=== PATIENT | male | born 2000 | race American Indian/Alaskan Native ===

== ENCOUNTER 2021-09-23 06:58 | Emergency (ER) | payer SELFPAY ==
--- NOTE | 2021-09-23 07:47 | Emergency Department Report ---
ED ENT HPI - General Chief complaint: Dental/Oral Stated complaint: DENTAL PAIN Time Seen by Provider: 09/23/21 07:13 Source: patient Mode of arrival: Ambulatory Limitations: No Limitations - History of Present Illness Initial comments: This is a 21-year-old male nontoxic, well nourished in appearance, no acute signs of distress presents to the ED with c/o of left upper toothache several days. Patient denies following up with a dentist. Patient describes toothache as aching level of 8 out of 10. Patient denies any facial swelling. Patient denies any numbness, tingling, fever, chills, headache, stiff neck, abdominal pain, chest pain, shortness of breath. Patient stated allergies to sulfa. Patient denies any significant past medical history. MD complaint: tooth pain -: days(s) Location: tooth # 1 - pain here Severity: mild Severity scale (0 -10): 8 Quality: aching Consistency: constant Improves with: none Worsens with: none Context- Dental: history of dental caries, poor dental care Associated Symptoms: gum swelling, toothache. denies: fever, cough, pain with swallowing, sore throat, tinnitus, hearing loss, discharge from ear, rhinorrhea - Related Data Previous Rx's Medication Instructions Recorded Last Taken Type Amoxicillin [Amoxicillin TAB] 875 mg PO BID #20 tablet 09/23/21 Unknown Rx Chlorhexidine Mouthwash [Peridex] 15 ml MM BID #1 bottle 09/23/21 Unknown Rx Naproxen 500 mg PO Q12H PRN #12 tablet 09/23/21 Unknown Rx Allergies Allergy/AdvReac Type Severity Reaction Status Date / Time iodine Allergy Unknown Verified 09/23/21 07:06 Sulfa (Sulfonamide Allergy Unknown Verified 09/23/21 07:06 Antibiotics) ED Dental HPI - General Chief complaint: Dental/Oral Stated complaint: DENTAL PAIN Time Seen by Provider: 09/23/21 07:13 Source: patient Mode of arrival: Ambulatory Limitations: No Limitations - Related Data Previous Rx's Medication Instructions Recorded Last Taken Type Amoxicillin [Amoxicillin TAB] 875 mg PO BID #20 tablet 09/23/21 Unknown Rx Chlorhexidine Mouthwash [Peridex] 15 ml MM BID #1 bottle 09/23/21 Unknown Rx Naproxen 500 mg PO Q12H PRN #12 tablet 09/23/21 Unknown Rx Allergies Allergy/AdvReac Type Severity Reaction Status Date / Time iodine Allergy Unknown Verified 09/23/21 07:06 Sulfa (Sulfonamide Allergy Unknown Verified 09/23/21 07:06 Antibiotics) ED Review of Systems ROS: Stated complaint: DENTAL PAIN Other details as noted in HPI Comment: All other systems reviewed and negative Constitutional: denies: chills, fever Eyes: denies: eye pain, eye discharge, vision change ENT: dental pain. denies: ear pain, throat pain, hearing loss, epistaxis, congestion Respiratory: denies: cough, shortness of breath, wheezing Cardiovascular: denies: chest pain, palpitations Endocrine: no symptoms reported Gastrointestinal: denies: abdominal pain, nausea, diarrhea Genitourinary: denies: urgency, dysuria Musculoskeletal: denies: back pain, joint swelling, arthralgia Skin: denies: rash, lesions Neurological: denies: headache, weakness, paresthesias Psychiatric: denies: anxiety, depression Hematological/Lymphatic: denies: easy bleeding, easy bruising ED Past Medical Hx - Past Medical History Previous Medical History?: No - Surgical History Past Surgical History?: No - Medications Home Medications: Home Medications Medication Instructions Recorded Confirmed Last Taken Type Amoxicillin [Amoxicillin TAB] 875 mg PO BID #20 tablet 09/23/21 Unknown Rx Chlorhexidine Mouthwash [Peridex] 15 ml MM BID #1 bottle 09/23/21 Unknown Rx Naproxen 500 mg PO Q12H PRN #12 tablet 09/23/21 Unknown Rx ED Physical Exam - General Limitations: No Limitations General appearance: alert, in no apparent distress - Head Head exam: Present: atraumatic, normocephalic - Eye Eye exam: Present: normal appearance - Expanded ENT Exam Expanded Ear exam: Present: normal external inspection Mouth exam: Present: normal external inspection, tongue normal. Absent: drooling, trismus, muffled voice Teeth exam: Present: dental caries, dental tenderness #, gingival enlargement, other (no dental abscess) Throat exam: Positive: normal inspection, other (uvula midline). Negative: tonsillar erythema, tonsillomegaly, tonsillar exudate, R peritonsillar mass, L peritonsillar mass - Neck Neck exam: Present: normal inspection, full ROM. Absent: lymphadenopathy - Respiratory Respiratory exam: Absent: respiratory distress - Cardiovascular Cardiovascular Exam: Present: regular rate - Extremities Exam Extremities exam: Present: full ROM - Back Exam Back exam: Present: full ROM - Neurological Exam Neurological exam: Present: alert, oriented X3, normal gait - Psychiatric Psychiatric exam: Present: normal affect, normal mood - Skin Skin exam: Present: warm, dry, intact, normal color. Absent: rash ED Course Vital Signs 09/23/21 07:04 Temperature 98.7 F Pulse Rate 86 Respiratory 18 Rate Blood Pressure 131/85 O2 Sat by Pulse 99 Oximetry - Reevaluation(s) Reevaluation #1: 09/23/21 07:47 Patient is speaking in full sentences with no signs of distress noted. ED Medical Decision Making - Medical Decision Making This is a 23-year-old male that presents with gingivitis and dental caries. Patient is stable and was examined by me. Patient does not present with a dental abscess. Patient will be discharged with amoxicillin. Patient was instructed to follow-up with a dentist doctor in 3-5 days or if symptoms worsen and continue return to emergency room as soon as possible. At time of discharge , the patient does not seem toxic or ill in appearance. No acute signs of distress noted. Patient agrees to discharge treatment plan of care. No further questions noted by the patient. Critical care attestation.: If time is entered above; I have spent that time in minutes in the direct care of this critically ill patient, excluding procedure time. ED Disposition Clinical Impression: Dental caries, Gingivitis Disposition: 01 HOME / SELF CARE / HOMELESS Is pt being admited?: No Does the pt Need Aspirin: No Condition: Stable Additional Instructions: Follow-up with a dentist doctor in 3-5 days or if symptoms worsen and continue return to emergency room as soon as possible. Prescriptions: Amoxicillin [Amoxicillin TAB] 875 mg PO BID #20 tablet Naproxen 500 mg PO Q12H PRN #12 tablet PRN Reason: Pain , Severe (7-10) Chlorhexidine Mouthwash [Peridex] 15 ml MM BID #1 bottle Referrals: PRIMARY CARE, [Referring] - 3-5 Days [facility] [Outside] - 3-5 Days [facility] [Outside] - 3-5 Days Forms: Work/School Release Form(ED) Time of Disposition: 07:49
[2021-09-23 08:04] VITALS: BP 131/75
== END 2021-09-23 08:04 | disposition home or self-care (01) ==
LOC: ED 06:58
DX: K02.9 Dental caries, unspecified (principal); K05.10 Chronic gingivitis, plaque induced; Z88.6 Allergy status to analgesic agent; Z88.2 Allergy status to sulfonamides; Z79.899 Other long term (current) drug therapy
CPT/HCPCS: 99281

== ENCOUNTER 2021-09-27 14:58 | Emergency (ER) | payer SELFPAY ==
[2021-09-27 15:06] VITALS: BP 130/74
[2021-09-27] MEDS ORDERED: predniSONE 20 MG TAB PO ONE (16:12)
[2021-09-27] MEDS ORDERED: FAMOTIDINE 20 MG TAB PO ONE (16:12)
--- NOTE | 2021-09-27 16:34 | Emergency Department Report ---
ED Allergic Reaction HPI - General Chief complaint: Allergic Reaction Stated complaint: ALLERGIC REACTION TO MEDS/NEEDS NEW MEDS Time Seen by Provider: 09/27/21 15:56 Source: patient Mode of arrival: Ambulatory Limitations: No Limitations - History of Present Illness Initial Comments: Patient is a 21-year-old male presents emergency room with complaints of an allergic reaction. He reports that he was given penicillin, naproxen, Peridex. He states last night he began having a diffuse rash with itching. He states he has never taken penicillin antibiotics before. He states he has taken Aleve and ibuprofen in the past with no issues. He has an allergy to iodine and sulfa. He denies any lip swelling, tongue swelling, sensation of throat closing, throat swelling, difficulty swallowing, difficulty breathing. Patient denies any past medical history. - Related Data Previous Rx's Medication Instructions Recorded Last Taken Type Amoxicillin [Amoxicillin TAB] 875 mg PO BID #20 tablet 09/23/21 Unknown Rx Chlorhexidine Mouthwash [Peridex] 15 ml MM BID #1 bottle 09/23/21 Unknown Rx Naproxen 500 mg PO Q12H PRN #12 tablet 09/23/21 Unknown Rx Loratadine 10 mg PO DAILY #10 tablet 09/27/21 Unknown Rx predniSONE [Deltasone] 40 mg PO QDAY 5 Days #10 tab 09/27/21 Unknown Rx Allergies Allergy/AdvReac Type Severity Reaction Status Date / Time iodine Allergy Unknown Verified 09/27/21 15:03 Sulfa (Sulfonamide Allergy Unknown Verified 09/27/21 15:03 Antibiotics) ED Review of Systems ROS: Stated complaint: ALLERGIC REACTION TO MEDS/NEEDS NEW MEDS Other details as noted in HPI Comment: All other systems reviewed and negative ED Past Medical Hx - Past Medical History Previous Medical History?: No - Surgical History Past Surgical History?: No - Medications Home Medications: Home Medications Medication Instructions Recorded Confirmed Last Taken Type Amoxicillin [Amoxicillin TAB] 875 mg PO BID #20 tablet 09/23/21 Unknown Rx Chlorhexidine Mouthwash [Peridex] 15 ml MM BID #1 bottle 09/23/21 Unknown Rx Naproxen 500 mg PO Q12H PRN #12 tablet 09/23/21 Unknown Rx Loratadine 10 mg PO DAILY #10 tablet 09/27/21 Unknown Rx predniSONE [Deltasone] 40 mg PO QDAY 5 Days #10 tab 09/27/21 Unknown Rx ED Physical Exam - General Limitations: No Limitations General appearance: alert, in no apparent distress - Head Head exam: Present: atraumatic, normocephalic - Eye Eye exam: Present: normal appearance - ENT ENT exam: Present: normal orophraynx, mucous membranes moist, other (dental carries present to the left upper gum line, no gum edema, no facial edema) - Respiratory Respiratory exam: Present: normal lung sounds bilaterally. Absent: respiratory distress, wheezes, rales, rhonchi, stridor, chest wall tenderness, accessory muscle use, decreased breath sounds, prolonged expiratory - Cardiovascular Cardiovascular Exam: Present: regular rate, normal rhythm, normal heart sounds. Absent: systolic murmur, diastolic murmur, rubs, gallop - Neurological Exam Neurological exam: Present: alert, oriented X3 - Psychiatric Psychiatric exam: Present: normal affect, normal mood - Skin Skin exam: Present: warm, dry, rash (diffuse very small skin colored papules, no urticaria, no mucosal involvement, no blistering, no skin denuding ) ED Course Vital Signs 09/27/21 15:06 Temperature 97.3 F L Pulse Rate 96 H Respiratory 18 Rate Blood Pressure 130/74 O2 Sat by Pulse 100 Oximetry ED Medical Decision Making - Medical Decision Making Patient is a 21-year-old male presents emergency room with complaints of an allergic reaction. He reports that he was given penicillin, naproxen, Peridex. He states last night he began having a diffuse rash with itching. He states he has never taken penicillin antibiotics before. He states he has taken Aleve and ibuprofen in the past with no issues. He has an allergy to iodine and sulfa. He denies any lip swelling, tongue swelling, sensation of throat closing, throat swelling, difficulty swallowing, difficulty breathing. Patient denies any past medical history. Vitals are normal. Examination appears consistent with drug reaction. No signs of angioedema or anaphylaxis. No mucosal involvement or skin denuding or blistering. There are no signs of infected dental caries or dental abscess, patient does not require antibiotic treatment at this time. Patient given medications while in the emergency department. Advised patient to stop amoxicillin. Advised patient to update his allergy list to include amoxicillin. Patient given prescription for medication. Advised patient Please take medication as prescribed. May gargle with warm salt water. Please stop taking amoxicillin. May use a dental body [id number] but please do not swallow. Follow-up with a dentist. Follow- up with your primary care doctor. Return to emergency room for any new or worse symptoms. Critical care attestation.: If time is entered above; I have spent that time in minutes in the direct care of this critically ill patient, excluding procedure time. ED Disposition Clinical Impression: Drug reaction Qualifiers: Encounter type: initial encounter Qualified Code(s): T50.905A - Adverse effect of unspecified drugs, medicaments and biological substances, initial encounter Disposition: 01 HOME / SELF CARE / HOMELESS Is pt being admited?: No Does the pt Need Aspirin: No Condition: Stable Instructions: Drug Allergy, [id number] Additional Instructions: Please take medication as prescribed. May gargle with warm salt water. Please stop taking amoxicillin. May use a dental body [id number] but please do not swallow. Follow-up with a dentist. Follow-up with your primary care doctor. Return to emergency room for any new or worse symptoms. Prescriptions: predniSONE [Deltasone] 40 mg PO QDAY 5 Days #10 tab Loratadine 10 mg PO DAILY #10 tablet Referrals: HEMAL REDMAN MD [Staff Physician] - 3-[address] [facility] [Provider Group] - 3-5 Days a, dentist [Other] - 3-5 Days Time of Disposition: 16:37 Print Language: ARMENIAN
== END 2021-09-27 17:00 | disposition home or self-care (01) ==
LOC: ED 14:58
DX: R21 Rash and other nonspecific skin eruption (principal); T36.0X5A Adverse effect of penicillins, initial encounter; T39.315A Adverse effect of propionic acid derivatives, initial encounter; T49.7X5A Adverse effect of dental drugs, topically applied, initial encounter; Y92.89 Other specified places as the place of occurrence of the external cause
CPT/HCPCS: 99282; J7512